=== PATIENT | male | born 1935 | race Caucasian/White ===

== ENCOUNTER 2021-02-01 16:13 | Inpatient (IN) | payer MEDICARE, MEDICAID ==
[2021-02-01 17:31] LABS: Analyzer IN Cardio ER; Base Excess (BEa) 1.9 mEq/L (-2.0 to +3.0); Calcium, Ionized (arterial) 1.16 mmol/L (1.12-1.30); Carboxyhemoglobin (COHb) 0.5 gm% (0.0-3.0); Hemoglobin (Hb) 12.6 g/dL (14.0-18.0); Potassium - ABG Lab 5.92 mmol/L (3.70-5.30); pH, Arterial 7.44 (7.35-7.45)
[2021-02-01 17:32] LABS: O2 Tension (PaO2), arterial 57.9 mmHg (> 60.0); Puncture Site RRA
[2021-02-01 17:33] LABS: Hemoglobin 12.5 g/dL (14.0-18.0); Mean Corpuscular HGB CONC 30.8 g/dL (32.0-36.0); Mean Corpuscular Hemoglobin 31.3 pg (27.0-31.0); Mean Platelet Volume 9.7 fL (7.4-10.4); Platelet Count 237 thou/uL (130-400); RBC Distribution Width 16.5 % (11.5-14.5); Red Blood Cell (RBC) Count 4.01 mill/uL (4.70-6.10); White Blood Cell (WBC) Count 23.6 thou/uL (4.8-10.8)
[2021-02-01 17:40] LABS: INR-International Normal Ratio 3.5
[2021-02-01 17:51] LABS: ALT (SGPT) 9 U/L (8-55); AST (SGOT) 13 U/L (5-34); Alkaline Phosphatase 107 U/L (40-110); Anion Gap 13 mmol/L (10-20); BUN (Urea Nitrogen) 46 mg/dL (8.4-25.7); Bilirubin, Total 0.4 mg/dL (0.2-1.2); Calc. Creatinine Clearance 0 mL/min (70-130); Calcium 8.8 mg/dL (7.8-10.44); Carbon Dioxide 29 mmol/L (23-31); Chloride 106 mmol/L (98-107); Glucose 122 mg/dL (83-110); Potassium 5.9 mmol/L (3.5-5.1); Sodium 142 mmol/L (136-145)
[2021-02-01 17:53] LABS: Band 21 % (5-11); Hypochromia SLIGHT = 6-15 cells (100X) (0-5/hpf); Lymphocytes 2 % (21-51); MDiff Complete? YES; Macrocytosis SLIGHT = 6-15 cells (100X) (0-5/hpf); Monocytes 2 % (0-10); Neutrophil 68 % (42-75); Platelet Morphology Comment Appears Adequate; Polychromasia SLIGHT = 2-3 cells (100X) (0-2/hpf); Reactive Lymphocytes 7 % (0-10)
[2021-02-01 18:15] LABS: CKMB 1.7 ng/mL (0-6.6)
[2021-02-01] MEDS ORDERED: Cefepime 2 GM VIAL ONE (19:29)
[2021-02-01] MEDS ORDERED: Vancomycin 1 GM/200 ML BAG ONE (20:17)
[2021-02-01 20:50] LABS: Bacteria/HPF 3+ HPF (None Seen); Bilirubin Negative (Negative); Blood, Urine 1+ (Negative); Clarity Turbid (Clear); Glucose, Urine (Dipstick) Normal (Negative); Ketone, Urine Negative (Negative); Leukocyte 500 Leu/uL (Negative); Nitrite Negative (Negative); Protein, Urine (Dipstick) 50 mg/dL (Neg-Trace); Specific Gravity, Urine 1.012 (1.002-1.036); Squamous Epithelial None Seen HPF (0-3); Urobilinogen Normal mg/dL (Less than 2); WBC/HPF Greater than 50 HPF (0-3); pH, Urine 6.5 (5.0-9.0)
[2021-02-01] MEDS ORDERED: Pharmacy to Dose : CEFEPIME IVPB PRN (21:16)
[2021-02-01] MEDS ORDERED: Doxycycline 100 MG in Syringe 0 ML IVPB SCH (21:18)
[2021-02-01] MEDS ORDERED: Senokot S 8.6-50 MG TAB PO PRN (21:21)
[2021-02-01] MEDS ORDERED: Guaifenesin DM 100-10/5 ML UDCUP PO PRN (21:21)
[2021-02-01] MEDS ORDERED: Acetaminophen 325 MG TAB PO PRN (21:21)
[2021-02-01] MEDS ORDERED: Calcium Carbonate 500 MG ChewTAB PO PRN (21:21)
[2021-02-01] MEDS ORDERED: Ondansetron ODT 4 MG TAB PO PRN (21:21)
[2021-02-01] MEDS ORDERED: Acetaminophen 650 MG Suppository PR PRN (21:21)
[2021-02-01] MEDS ORDERED: Ondansetron PF 4 MG/2 ML Vial IVP PRN (21:21)
[2021-02-01] MEDS ORDERED: Dexamethasone 4 mg/ml Vial SLOW IVP SCH (21:30)
[2021-02-01 21:45] LABS: Troponin I 0.047 ng/mL (< 0.028)
[2021-02-01 22:25] LABS: SARS-CoV-2 NAA Rapid Test Not Detected (NotDetected)
[2021-02-02 01:34] LABS: Troponin I 0.046 ng/mL (< 0.028)
[2021-02-02] MEDS ORDERED: Acetaminophen 650 MG Suppository ONE (01:42)
[2021-02-02] MEDS: metroNIDAZOLE 500 MG in Premix Bag 1 BAG IVPB SCH ×2 (02:02→22:33)
[2021-02-02] MEDS ORDERED: Dexamethasone 10 MG/ML VIAL ONE (02:32)
[2021-02-02 06:49] LABS: INR-International Normal Ratio 3.2; PTT 53.9 sec (22.9-36.1); Prothrombin Time 33.8 sec (12.0-14.7)
[2021-02-02 07:02] LABS: Anion Gap 12 mmol/L (10-20); BUN (Urea Nitrogen) 46 mg/dL (8.4-25.7); CRP (Inflammatory) 16.04 mg/dL (= or < 0.5); Calc. Creatinine Clearance 11 mL/min (70-130); Calcium 8.1 mg/dL (7.8-10.44); Carbon Dioxide 23 mmol/L (23-31); Chloride 112 mmol/L (98-107); Glucose 99 mg/dL (83-110); Potassium 4.9 mmol/L (3.5-5.1); Sodium 142 mmol/L (136-145)
[2021-02-02 07:23] LABS: Hemoglobin 10.6 g/dL (14.0-18.0); Mean Corpuscular HGB CONC 30.6 g/dL (32.0-36.0); Mean Corpuscular Hemoglobin 31.2 pg (27.0-31.0); Mean Platelet Volume 9.6 fL (7.4-10.4); Platelet Count 175 thou/uL (130-400); RBC Distribution Width 16.5 % (11.5-14.5); White Blood Cell (WBC) Count 30.9 thou/uL (4.8-10.8)
[2021-02-02 07:28] LABS: Ferritin 778.94 ng/mL (22-322); Thyroid Stimulating Hormone 1.9899 uIU/mL (0.35-4.94)
[2021-02-02 07:49] LABS: Band 17 % (5-11); Lymphocytes 3 % (21-51); MDiff Complete? YES; Macrocytosis SLIGHT = 6-15 cells (100X) (0-5/hpf); Monocytes 2 % (0-10); Neutrophil 78 % (42-75); Platelet Morphology Comment Appears Adequate; Polychromasia SLIGHT = 2-3 cells (100X) (0-2/hpf)
[2021-02-02] MEDS ORDERED: Sodium Chloride 0.9% 1,000 ML IV SCH ×2 (08:15→08:45)
[2021-02-02] MEDS ORDERED: Vancomycin 1 GM in Premix Bag 1 BAG IVPB SCH (08:15)
[2021-02-02] MEDS ORDERED: Zinc Sulfate 220 MG CAP PO SCH (09:00)
[2021-02-02] MEDS ORDERED: Dexamethasone 4 mg/ml Vial SLOW IVP SCH (09:00)
[2021-02-02] MEDS ORDERED: Albumin 25% 25 GM/100 ML BOT IVPB SCH (09:30)
[2021-02-02] MEDS ORDERED: Hydrocortisone Sod Succ/PF 100 mg/2 ml Vial ONE ×2 (09:36→18:26)
[2021-02-02] MEDS: Hydrocortisone Sod Succ/PF 100 mg/2 ml Vial IVP SCH ×2 (09:40→17:00)
[2021-02-02] MEDS ORDERED: Sodium Chloride 0.9% 500 ML IV SCH (10:15)
[2021-02-02] MEDS ORDERED: Acetaminophen 325 MG Suppository PR PRN (10:21)
[2021-02-02] MEDS ORDERED: Norepinephrine 8 MG/0.9% NS 250 ML IVPB PRN (10:21)
[2021-02-02] MEDS: Cholecalciferol 1,000 UNITS (25 MCG) TAB PO SCH (10:55)
[2021-02-02] MEDS: Ascorbic Acid 500 mg Chewable Tablet PO SCH (10:55)
[2021-02-02] MEDS: Albumin 25% 25 GM/100 ML BOT IVPB SCH ×2 (18:37→22:23)
[2021-02-02] MEDS: Sodium Bicarbonate 50 MEQ in Dextrose 5 %-0.45 % NaCl 1,000 ML IV SCH (19:15)
[2021-02-02 19:42] LABS: Anion Gap 11 mmol/L (10-20); BUN (Urea Nitrogen) 47 mg/dL (8.4-25.7); Calc. Creatinine Clearance 13 mL/min (70-130); Calcium 7.8 mg/dL (7.8-10.44); Carbon Dioxide 26 mmol/L (23-31); Chloride 114 mmol/L (98-107); Glucose 97 mg/dL (83-110); Potassium 4.6 mmol/L (3.5-5.1); Sodium 146 mmol/L (136-145)
[2021-02-02 19:48] LABS: Vancomycin, Random 9.5 ug/mL (See Comment)
[2021-02-02] MEDS ORDERED: Cefepime 0.5 GM, Admixture Fee 1 EACH in Sodium Chloride 0.9% 100 ML IVPB SCH (20:00)
[2021-02-02] MEDS ORDERED: Famotidine/PF 20 mg/2ml Vial SLOW IVP SCH (21:00)
[2021-02-02] MEDS ORDERED: Vancomycin HCl 750 MG in Sodium Chloride 0.9% 250 ML 250 ML IVPB SCH (21:00)
[2021-02-03] MEDS: Albumin 25% 25 GM/100 ML BOT IVPB SCH ×3 (02:03→17:38)
[2021-02-03] MEDS: Hydrocortisone Sod Succ/PF 100 mg/2 ml Vial IVP SCH ×3 (02:03→17:38)
[2021-02-03 04:49] LABS: INR-International Normal Ratio 3.3
[2021-02-03 04:51] LABS: #Lymphocytes 0.8 thou/uL (1.20-3.40); #Monocytes 0.2 thou/uL (0.11-0.59); #Neutrophils 12.4 thou/uL (1.40-6.50); %Basophils 0.1 % (0.0-1.0); %Eosinophils 0.2 % (0.0-10.0); %Lymphocytes 5.6 % (21.0-51.0); %Monocytes 1.3 % (0.0-10.0); %Neutrophils 92.8 % (42.0-75.0); Hemoglobin 7.9 g/dL (14.0-18.0); Mean Corpuscular HGB CONC 30.8 g/dL (32.0-36.0); Mean Corpuscular Hemoglobin 31.8 pg (27.0-31.0); Mean Platelet Volume 9.5 fL (7.4-10.4); Platelet Count 143 thou/uL (130-400); Red Blood Cell (RBC) Count 2.48 mill/uL (4.70-6.10); White Blood Cell (WBC) Count 13.3 thou/uL (4.8-10.8)
[2021-02-03 05:17] LABS: ALT (SGPT) Less than 7 U/L (8-55); AST (SGOT) 10 U/L (5-34); Alkaline Phosphatase 66 U/L (40-110); Anion Gap 12 mmol/L (10-20); BUN (Urea Nitrogen) 46 mg/dL (8.4-25.7); Bilirubin, Total 0.3 mg/dL (0.2-1.2); Calc. Creatinine Clearance 18 mL/min (70-130); Calcium 7.7 mg/dL (7.8-10.44); Carbon Dioxide 23 mmol/L (23-31); Chloride 114 mmol/L (98-107); Glucose 130 mg/dL (83-110); Magnesium 1.8 mg/dL (1.6-2.6); Phosphorus 3.8 mg/dL (2.3-4.7); Potassium 3.8 mmol/L (3.5-5.1); Sodium 145 mmol/L (136-145)
[2021-02-03] MEDS: metroNIDAZOLE 500 MG in Premix Bag 1 BAG IVPB SCH ×2 (05:40→15:13)
[2021-02-03] MEDS: Sodium Bicarbonate 50 MEQ in Dextrose 5 %-0.45 % NaCl 1,000 ML IV SCH ×3 (08:18→23:07)
[2021-02-03] MEDS: Pantoprazole 40 MG VIAL IVP SCH ×2 (10:04→21:10)
[2021-02-03] MEDS: Cholecalciferol 1,000 UNITS (25 MCG) TAB PO SCH (10:05)
[2021-02-03] MEDS: Ascorbic Acid 500 mg Chewable Tablet PO SCH (10:05)
[2021-02-03 20:20] LABS: Reticulocyte Count 1.3 % (0.5-1.5)
[2021-02-03 20:39] LABS: Vancomycin, Random 13.9 ug/mL (See Comment)
[2021-02-03] MEDS: Cefepime 0.5 GM, Admixture Fee 1 EACH in Sodium Chloride 0.9% 100 ML IVPB SCH (21:10)
[2021-02-03 22:10] LABS: Hemoglobin 8.5 g/dL (14.0-18.0); Platelet Count 152 thou/uL (130-400)
[2021-02-03] MEDS ORDERED: Vancomycin HCl 500 MG in Sodium Chloride 0.9% 100 ML IVPB SCH (22:15)
[2021-02-04] MEDS: Hydrocortisone Sod Succ/PF 100 mg/2 ml Vial IVP SCH (02:30)
[2021-02-04 05:10] LABS: INR-International Normal Ratio 2.1; Prothrombin Time 24.1 sec (12.0-14.7)
[2021-02-04 05:16] LABS: Hemoglobin 8.9 g/dL (14.0-18.0); Mean Corpuscular HGB CONC 30.9 g/dL (32.0-36.0); Mean Corpuscular Hemoglobin 31.6 pg (27.0-31.0); Mean Platelet Volume 9.7 fL (7.4-10.4); Platelet Count 162 thou/uL (130-400); RBC Distribution Width 16.2 % (11.5-14.5); Red Blood Cell (RBC) Count 2.82 mill/uL (4.70-6.10); White Blood Cell (WBC) Count 12.3 thou/uL (4.8-10.8)
[2021-02-04 05:21] LABS: Lymphocytes 9 % (21-51); MDiff Complete? YES; Monocytes 1 % (0-10); Neutrophil 90 % (42-75); Platelet Morphology Comment Appears Decreased
[2021-02-04 05:27] LABS: ALT (SGPT) Less than 7 U/L (8-55); AST (SGOT) 9 U/L (5-34); Albumin 3.2 g/dL (3.4-4.8); Alkaline Phosphatase 66 U/L (40-110); Anion Gap 8 mmol/L (10-20); BUN (Urea Nitrogen) 45 mg/dL (8.4-25.7); Bilirubin, Total 0.4 mg/dL (0.2-1.2); Calc. Creatinine Clearance 22 mL/min (70-130); Calcium 7.9 mg/dL (7.8-10.44); Carbon Dioxide 27 mmol/L (23-31); Chloride 113 mmol/L (98-107); Globulin 2.9 g/dL (2.4-3.5); Glucose 129 mg/dL (83-110); Potassium 3.3 mmol/L (3.5-5.1); Protein, Total 6.1 g/dL (5.8-8.1); Sodium 145 mmol/L (136-145)
[2021-02-04] MEDS ORDERED: Potassium Chloride 20 MEQ/100 ML PREMIX BAG IVPB SCH (08:15)
[2021-02-04] MEDS ORDERED: Potassium Chloride 20 MEQ in Sodium Chloride 0.9% 250 ML 250 ML IVPB SCH (08:15)
[2021-02-04] MEDS: Dextrose 5 %-0.45 % NaCl 1,000 ML IV SCH (09:11)
[2021-02-04] MEDS: Ascorbic Acid 500 mg Chewable Tablet PO SCH (09:12)
[2021-02-04] MEDS: Dexamethasone 4 mg/ml Vial SLOW IVP SCH (09:13)
[2021-02-04] MEDS: Cholecalciferol 1,000 UNITS (25 MCG) TAB PO SCH (09:13)
[2021-02-04] MEDS: Pantoprazole 40 MG VIAL IVP SCH ×2 (09:14→20:59)
[2021-02-04 13:57] VITALS: BMI 18.2
[2021-02-04] MEDS: Cefepime 0.5 GM, Admixture Fee 1 EACH in Sodium Chloride 0.9% 100 ML IVPB SCH (20:59)
[2021-02-04 21:42] LABS: Vancomycin, Random 13.7 ug/mL (See Comment)
[2021-02-04] MEDS ORDERED: Vancomycin HCl 750 MG in Sodium Chloride 0.9% 250 ML 250 ML IVPB SCH (22:00)
[2021-02-05 04:54] LABS: Anion Gap 9 mmol/L (10-20); BUN (Urea Nitrogen) 42 mg/dL (8.4-25.7); Calc. Creatinine Clearance 27 mL/min (70-130); Calcium 7.9 mg/dL (7.8-10.44); Carbon Dioxide 26 mmol/L (23-31); Chloride 111 mmol/L (98-107); Glucose 111 mg/dL (83-110); Potassium 3.5 mmol/L (3.5-5.1); Sodium 142 mmol/L (136-145)
[2021-02-05 05:49] LABS: #Lymphocytes 1.5 thou/uL (1.20-3.40); #Monocytes 0.6 thou/uL (0.11-0.59); #Neutrophils 9.4 thou/uL (1.40-6.50); %Basophils 0.1 % (0.0-1.0); %Eosinophils 0.2 % (0.0-10.0); %Lymphocytes 12.9 % (21.0-51.0); %Monocytes 5.1 % (0.0-10.0); %Neutrophils 81.8 % (42.0-75.0); Mean Corpuscular HGB CONC 30.5 g/dL (32.0-36.0); Mean Corpuscular Hemoglobin 30.9 pg (27.0-31.0); Mean Platelet Volume 9.7 fL (7.4-10.4); Platelet Count 161 thou/uL (130-400); RBC Distribution Width 16.4 % (11.5-14.5); Red Blood Cell (RBC) Count 3.22 mill/uL (4.70-6.10); White Blood Cell (WBC) Count 11.5 thou/uL (4.8-10.8)
[2021-02-05 05:55] LABS: INR-International Normal Ratio 1.5; Prothrombin Time 18.7 sec (12.0-14.7)
[2021-02-05] MEDS: Dextrose 5 %-0.45 % NaCl 1,000 ML IV SCH (06:27)
[2021-02-05] MEDS: Ascorbic Acid 500 mg Chewable Tablet PO SCH (09:22)
[2021-02-05] MEDS: Cholecalciferol 1,000 UNITS (25 MCG) TAB PO SCH (09:22)
[2021-02-05] MEDS: Dexamethasone 4 mg/ml Vial SLOW IVP SCH (09:23)
[2021-02-05] MEDS: Pantoprazole 40 MG VIAL IVP SCH (09:23)
[2021-02-05] MEDS: Cefdinir 300 MG CAP PO SCH (20:42)
[2021-02-06] MEDS: Dextrose 5 %-0.45 % NaCl 1,000 ML IV SCH (00:32)
[2021-02-06 04:30] LABS: #Lymphocytes 1.8 thou/uL (1.20-3.40); #Monocytes 0.6 thou/uL (0.11-0.59); #Neutrophils 6.1 thou/uL (1.40-6.50); %Basophils 0.1 % (0.0-1.0); %Eosinophils 0.2 % (0.0-10.0); %Monocytes 7.2 % (0.0-10.0); %Neutrophils 71.4 % (42.0-75.0); Hemoglobin 9.2 g/dL (14.0-18.0); Mean Corpuscular HGB CONC 30.8 g/dL (32.0-36.0); Mean Corpuscular Hemoglobin 30.9 pg (27.0-31.0); Mean Platelet Volume 9.7 fL (7.4-10.4); Platelet Count 150 thou/uL (130-400); White Blood Cell (WBC) Count 8.6 thou/uL (4.8-10.8)
[2021-02-06 04:35] LABS: INR-International Normal Ratio 1.4; Prothrombin Time 17.1 sec (12.0-14.7)
[2021-02-06 04:46] LABS: Anion Gap 12 mmol/L (10-20); BUN (Urea Nitrogen) 42 mg/dL (8.4-25.7); Calc. Creatinine Clearance 30 mL/min (70-130); Carbon Dioxide 21 mmol/L (23-31); Chloride 110 mmol/L (98-107); Glucose 106 mg/dL (83-110); Potassium 3.3 mmol/L (3.5-5.1); Sodium 140 mmol/L (136-145)
[2021-02-06] MEDS ORDERED: Potassium Chloride 20 MEQ TAB PO SCH (08:30)
[2021-02-06] MEDS: Dexamethasone 4 mg/ml Vial SLOW IVP SCH (09:16)
[2021-02-06] MEDS: Ascorbic Acid 500 mg Chewable Tablet PO SCH (09:16)
[2021-02-06] MEDS: Cholecalciferol 1,000 UNITS (25 MCG) TAB PO SCH (09:16)
[2021-02-06] MEDS: Cefdinir 300 MG CAP PO SCH (09:16)
[2021-02-06] MEDS: Pantoprazole 40 MG VIAL IVP SCH (09:17)
[2021-02-06 15:00] VITALS: BP 144/80; TEMP 98.7
== END 2021-02-06 15:31 | DRG 871 ==
LOC: ERS 16:13 → ERHOLD 20:58 → OBSVTOIN 02-02 08:06 → CCU 02-02 12:10 → ERHOLD 02-02 12:10 → 2NO 02-02 20:42
PROVIDERS: ADMIT Student in an Organized Health Care Education/Training Program; ATTEND Internal Medicine
DX: A41.9 Sepsis, unspecified organism (principal); J96.01 Acute respiratory failure with hypoxia; J15.9 Unspecified bacterial pneumonia; E51.9 Thiamine deficiency, unspecified; N39.0 Urinary tract infection, site not specified; N17.9 Acute kidney failure, unspecified; J44.0 Chronic obstructive pulmonary disease with (acute) lower respiratory infection; E44.0 Moderate protein-calorie malnutrition; Z68.1 Body mass index [BMI] 19.9 or less, adult; J44.1 Chronic obstructive pulmonary disease with (acute) exacerbation; E87.0 Hyperosmolality and hypernatremia; Z16.19 Resistance to other specified beta lactam antibiotics; Z16.29 Resistance to other single specified antibiotic; Z51.5 Encounter for palliative care; Z66 Do not resuscitate; F03.90 Unspecified dementia, unspecified severity, without behavioral disturbance, psychotic disturbance, mood disturbance, and anxiety; R65.20 Severe sepsis without septic shock; J44.9 Chronic obstructive pulmonary disease, unspecified; F79 Unspecified intellectual disabilities; D75.82 Heparin induced thrombocytopenia (HIT); K21.9 Gastro-esophageal reflux disease without esophagitis; F41.9 Anxiety disorder, unspecified; G89.29 Other chronic pain; D52.9 Folate deficiency anemia, unspecified; E55.9 Vitamin D deficiency, unspecified; E53.8 Deficiency of other specified B group vitamins; N18.30 Chronic kidney disease, stage 3 unspecified; R79.1 Abnormal coagulation profile; E87.5 Hyperkalemia; L89.152 Pressure ulcer of sacral region, stage 2; I12.9 Hypertensive chronic kidney disease with stage 1 through stage 4 chronic kidney disease, or unspecified chronic kidney disease; D63.8 Anemia in other chronic diseases classified elsewhere; E87.6 Hypokalemia; B96.1 Klebsiella pneumoniae [K. pneumoniae] as the cause of diseases classified elsewhere; K80.20 Calculus of gallbladder without cholecystitis without obstruction; Z79.01 Long term (current) use of anticoagulants
CPT/HCPCS: 0240U; 36415; 36416; 36600; 51701; 71045; 71250; 74177; 76770; 80048; 80053; 80202; 81003; 81015; 82274; 82306; 82533; 82553; 82570; 82607; 82728; 82746; 82805; 83605; 83735; 83880; 83970; 84100; 84300; 84443; 84484; 84540; 85025; 85046; 85610; 85730; 86140; 86850; 86900; 86901; 87040; 87077; 87086; 87186; 93005; 96365; 96375; C9113; G0378; J0692; J1100; J1720; J3370; J3480; J3490; J7042; J7050; P9047; S0028